=== PATIENT | male | born 1945 | race Caucasian/White ===

== ENCOUNTER 2022-05-29 07:28 | Outpatient (CLI) | payer MEDICARE, OTHER | END 2022-05-29 23:59 | disposition home or self-care (01) | LOC: LAB 07:28 | PROVIDERS: ATTEND Surgery | DX: Z01.812 Encounter for preprocedural laboratory examination (principal); Z20.822 Contact with and (suspected) exposure to COVID-19 ==

== ENCOUNTER 2022-05-31 08:02 | Outpatient (CLI) | payer MEDICARE, OTHER | END 2022-05-31 23:59 | disposition home or self-care (01) | LOC: LAB 08:02 | PROVIDERS: ATTEND Surgery | DX: Z01.812 Encounter for preprocedural laboratory examination (principal); Z20.822 Contact with and (suspected) exposure to COVID-19 ==

== ENCOUNTER 2022-06-03 07:47 | Day surgery (SDC) | payer MEDICARE, OTHER ==
[2022-06-03] MEDS ORDERED: SEVOFLURANE 250 ML BOTTLE IH ONE (07:48)
[2022-06-03] MEDS ORDERED: DEXAMETHASONE SOD PHOSPHATE 4 MG INJ IV ONE (07:48)
[2022-06-03] MEDS ORDERED: SUCCINYLCHOLINE CHLORIDE 200 MG/10 ML VIAL IV ONE (07:48)
[2022-06-03] MEDS ORDERED: LIDOCAINE-MPF 2% 5 ML VIAL IJ ONE (07:48)
[2022-06-03] MEDS ORDERED: ONDANSETRON 4 MG/2 ML VIAL IV ONE (07:48)
[2022-06-03] MEDS ORDERED: PROPOFOL 200 MG/20 ML BOTTLE IV ONE (07:48)
[2022-06-03] MEDS ORDERED: CEFAZOLIN 2 G in IV DEXTROSE 5% 100 ML IV ONE (08:15)
[2022-06-03] MEDS ORDERED: MAGNESIUM SULFATE/D5W 100 ML IV SCH (09:00)
[2022-06-03] MEDS ORDERED: FENTANYL CITRATE 100 MCG/2 ML AMPUL ONE (10:16)
[2022-06-03] MEDS ORDERED: BUPIVACAINE 0.25% 30 ML VIAL ONE (10:50)
[2022-06-03] MEDS ORDERED: LIDOCAINE 1%-EPI 1:100,000 20 ML VIAL ONE (10:50)
[2022-06-03] MEDS ORDERED: hydrALAZINE HCL 20 MG/1 ML VIAL ONE (11:46)
[2022-06-03] MEDS ORDERED: GABAPENTIN 300 MG CAPSULE ONE (12:59)
[2022-06-03] MEDS ORDERED: IBUPROFEN 800 MG TABLET ONE (12:59)
[2022-06-03] MEDS ORDERED: ACETAMINOPHEN 325 MG TABLET ONE (13:00)
[2022-06-03] MEDS ORDERED: ACETAMINOPHEN 325 MG TABLET PO ONE (13:30)
[2022-06-03] MEDS ORDERED: IBUPROFEN 800 MG TABLET PO SCH (13:30)
[2022-06-03] MEDS ORDERED: GABAPENTIN 300 MG CAPSULE PO ONE (13:30)
== END 2022-06-03 14:11 | disposition home or self-care (01) ==
LOC: DS 07:47
PROVIDERS: ATTEND Surgery
DX: K64.4 Residual hemorrhoidal skin tags (principal); I10 Essential (primary) hypertension; E11.9 Type 2 diabetes mellitus without complications; F41.9 Anxiety disorder, unspecified; Z79.84 Long term (current) use of oral hypoglycemic drugs; Z79.899 Other long term (current) drug therapy; Z98.890 Other specified postprocedural states; Z82.49 Family history of ischemic heart disease and other diseases of the circulatory system; Z83.3 Family history of diabetes mellitus
CPT/HCPCS: 46260; 83735; 36415; J3490 ×3; J0690; J1100; J0360; J3475; J2405; J0330; J3010; J7040; A4649; A4663